=== PATIENT | female | born 1950 | race Caucasian/White ===

== ENCOUNTER → 2016-12-02 | Outpatient (CLI) | payer MEDICARE ==
--- NOTE | 2016-12-08 15:12 | MAM ---
EXAM DESCRIPTION: 3D Screening BILATERAL CLINICAL HISTORY: 66 yearsFemaleSCREENING. Aunt with breast cancer. Hysterectomy. Previously on HRT less than five years ago.. COMPARISON: Digital 2-D bilateral screening study. 12/02/2015.. No prior reports available. Reports from prior examinations also reviewed. Report from prior examination also reviewed. TECHNIQUE: Bilateral CC and MLO projection full-field images, 3-D tomosynthesis digital mammographic technique. Also bilateral synthesized CC/ MLO full-field images. CAD not utilized. FINDINGS: The breast parenchymal density pattern is: Scattered areas of fibroglandular density. No skin thickening or nipple retraction bilateral axillary lymph nodes. Round mass density with well-defined borders at the 1200 clock position of the right breast in the middle third, approximately 7 cm from the nipple. Similar density as surrounding tissue; most likely cyst, lymph node, or fibroadenoma. 5 mm diameter. Not as well seen on the prior study. No focal, stellate mass or density, focal asymmetry , and no suspicious microcalcifications left breast. IMPRESSION: BI-RADS CATEGORY: 0 - INCOMPLETE- Need additional imaging evaluation. FOLLOW-UP: Recall for additional imaging: Targeted breast ultrasound region of interest middle third right breast. Written communication concerning the findings and impression will be mailed to the patient and referring health care provider. Electronically signed by: Ravi Long MD 12/08/2016 3:11 PM CDT Workstation: [id number]
== END ==
LOC: MAMMO 16:00
PROVIDERS: ATTEND Family Medicine
DX: Z12.31 Encounter for screening mammogram for malignant neoplasm of breast (principal)
CPT/HCPCS: 77063; G0202

== ENCOUNTER → 2016-12-16 | Outpatient (CLI) | payer MEDICARE ==
--- NOTE | 2016-12-16 16:20 | US ---
EXAM DESCRIPTION: Breast,Right CLINICAL HISTORY: 66 years Female, recent screening three mammogram from December 02 showed focal asymmetric parenchymal density upper portion right breast 12:00 COMPARISON: December 02, 2016 FINDINGS: Directed ultrasound of the upper portion right breast at 12:00 4 cm from the nipple shows small oval simple cyst with through transmission in the expected location. This represents the mammographic abnormality. No further evaluation required. IMPRESSION: BIRAD CATEGORY: 2 BENIGN Electronically signed by: Jere Verdugo MD 12/16/2016 4:18 PM CDT Workstation: [id number]
== END ==
LOC: MAMMO 15:30
PROVIDERS: ATTEND Family Medicine
DX: R92.8 Other abnormal and inconclusive findings on diagnostic imaging of breast (principal)

== ENCOUNTER → 2017-01-08 | Outpatient (CLI) | payer MEDICARE | END | disposition home or self-care (01) | LOC: GMAL 10:18 | PROVIDERS: ATTEND Family Medicine | DX: D51.3 Other dietary vitamin B12 deficiency anemia (principal); R53.83 Other fatigue; E55.9 Vitamin D deficiency, unspecified ==

== ENCOUNTER → 2017-01-14 | Outpatient (CLI) | payer MEDICARE | END | disposition home or self-care (01) | LOC: LAB.O 16:20 | PROVIDERS: ATTEND Family Medicine | DX: R53.82 Chronic fatigue, unspecified (principal); M25.50 Pain in unspecified joint; M79.7 Fibromyalgia; R30.0 Dysuria ==

== ENCOUNTER → 2018-02-23 | Outpatient (CLI) | payer MEDICARE, OTHER | LOC: GMAL 10:33 | PROVIDERS: ATTEND Family Medicine | DX: D51.3 Other dietary vitamin B12 deficiency anemia (principal); R53.83 Other fatigue; E55.9 Vitamin D deficiency, unspecified ==

== ENCOUNTER 2018-09-05 05:25 | Day surgery (SDC) | payer MEDICARE, OTHER ==
--- NOTE | 2018-09-01 08:17 | SSS ---
CHIEF COMPLAINT: History of colonic polyps. HISTORY OF PRESENT ILLNESS: Ms. Sherwood is a 68-year-old female who presented to my office for routine followup. It was noted she is due for colonoscopy due to her history of tubular adenoma removed from her cecum back in 2013. Risks and benefits were discussed and she is agreeable with proceeding. She has no new symptoms referable to her bowels, specifically no abdominal pain, changes in her weight, blood in her stools or change in her stool habits. PAST MEDICAL HISTORY: 1. Chronic pain, likely fibromyalgia. 2. History of colonic polyps as above. 3. Migraine headaches, which have improved since her hysterectomy. OB HISTORY: She is 2, para 2 with 1 miscarriage. PAST SURGICAL HISTORY: 1. Hysterectomy with bilateral salpingo-oophorectomy on 05/31/[address] Chambers. It was a vaginal hysterectomy for menometrorrhagia. 2. Tonsillectomy at age 1. 3. Carpal and cubital tunnel surgery on the right in July of 2002. 4. Colonoscopy by this physician on 07/31/13 that showed a small cecal adenoma that was removed and mild left sided diverticulosis. CURRENT MEDICATIONS: 1. Claritin. 2. Caltrate. 3. Multivitamin. 4. B12. 5. Plaquenil sometimes. 6. Savella. ALLERGIES: PENICILLIN. She also has an intolerance to Fetzima that gave her extreme anxiety. Hydrocodone causes nausea. Tramadol gave her a bit of a headache. FAMILY HISTORY: Father has arthritis. Mother has hypertension. She has a brother, Angel, who has liver disease. She has two sisters, an identical twin named Kelly with hypertension and a sister, Aarti, with lupus. She has two sons, both in good health. She has one daughter who is in good health. SOCIAL HISTORY: She is retired. She has been twice. She was to her first for 35 years. She was remarried in 2005 following a divorce. She has some college education. She has never smoked. She drinks alcohol very infrequently. REVIEW OF SYSTEMS: Negative except as in the history of present illness. PHYSICAL EXAMINATION: VITAL SIGNS: Weight 167 pounds. Blood pressure 130/90. Pulse 80. GENERAL: She is awake, alert, in no acute distress. HEENT: Unremarkable. NECK: Supple. LUNGS: Clear. CARDIOVASCULAR: Regular rate and rhythm. ABDOMEN: Soft, nontender. EXTREMITIES: Without edema. RECTAL: Deferred until time of colonoscopy. NEUROLOGIC: Nonfocal. ASSESSMENT: 1. History of colonic polyps. PLAN: Colonoscopy on 09/05/18. #[id number] MTDD
[2018-09-05] MEDS ORDERED: LACTATED RINGERS 1,000 ML ONE (06:56)
[2018-09-05] MEDS ORDERED: LACTATED RINGERS 1,000 ML IVS ONE (11:47)
[2018-09-05] MEDS ORDERED: ELECTROLYTE-A 0 ML IVS ONE (12:29)
--- NOTE | 2018-09-05 13:31 | OP ---
DATE OF PROCEDURE: 09/05/18 PREOPERATIVE DIAGNOSIS: 1. History of colonic polyps. POSTOPERATIVE DIAGNOSIS: 1. History of colonic polyps. 2. Moderate number of left sided diverticula, mostly small in size. 3. Otherwise, normal colonoscopy to the cecum. PROCEDURE: 1. Colonoscopy. SURGEON: Jak Schwartz MD. ESTIMATED BLOOD LOSS: None. COMPLICATIONS: No immediate complications. ANESTHESIA: Propofol 400 mg administered intravenously via Jamir Reyes CRNA. TECHNIQUE: After informed consent was obtained from the patient, the patient was taken to the Endoscopy Suite and placed in the left lateral decubitus position. Incremental doses of propofol were given until adequate sedation was obtained. A digital rectal examination was performed, which was unremarkable. The colonoscope was then advanced into the patient's rectum and slowly through the sigmoid and descending colon. Some looping was noted around the hepatic flexure, but with manual pressure, the cecum was reached. The appendiceal orifice was noted and photograph was taken of this as well as the cecum. The colonoscope was then slowly withdrawn. The overall bowel prep was quite good with the exception of primarily the transverse colon where a moderate amount of liquid stool was noted. Great effort was made to try to suction out as much of this as possible. No polyps were noted. There was left sided diverticular disease, mostly small in size and moderate in number. No other abnormalities were noted. She was beginning to wake up at the conclusion of the procedure and we did not pursue retroflexion any further after one attempt was unsuccessful and was uncomfortable. I withdraw the scope from the rectum extremely slowly to be sure not to miss anything. The colonoscope was removed from the patient. The patient tolerated the procedure well and was taken back to the recovery area in good condition. PLAN: She will followup in my office as usual in about 6 months with Ingris sams.3 years and repeat her scope likely in 8 years. #[id number] MTDD
[2018-09-05 13:34] VITALS: BP 167/89; TEMP 97.6; O2SAT 100
== END 2018-09-05 13:35 | disposition home or self-care (01) ==
LOC: AMB 05:25
PROVIDERS: ATTEND Family Medicine
DX: Z12.11 Encounter for screening for malignant neoplasm of colon (principal); K57.30 Diverticulosis of large intestine without perforation or abscess without bleeding; G89.29 Other chronic pain; G43.909 Migraine, unspecified, not intractable, without status migrainosus; Z86.010 Personal history of colon polyps; Z90.710 Acquired absence of both cervix and uterus; Z88.0 Allergy status to penicillin; Z88.5 Allergy status to narcotic agent; Z88.8 Allergy status to other drugs, medicaments and biological substances; Z79.899 Other long term (current) drug therapy
CPT/HCPCS: 00812; G0105; J7120

== ENCOUNTER → 2018-11-16 | Outpatient (CLI) | payer MEDICARE, OTHER | LOC: GMAL 16:46 | PROVIDERS: ATTEND Family Medicine | DX: M79.7 Fibromyalgia (principal); D50.8 Other iron deficiency anemias; R25.2 Cramp and spasm ==

== ENCOUNTER → 2020-06-14 | Outpatient (CLI) | payer MEDICARE, OTHER | LOC: GMAL 13:14 | PROVIDERS: ATTEND Family Medicine | DX: R30.0 Dysuria (principal) ==